=== PATIENT | male | born 1960 | race Caucasian/White ===

== ENCOUNTER 2018-12-21 06:14 | Observation (INO) ==
[2018-12-17 12:14] LABS: URINE SOURCE CLEAN CATCH
[2018-12-17 12:43] LABS: BILIRUBIN URINE NEGATIVE (NEGATIVE); BLOOD URINE NEGATIVE (NEGATIVE); COLOR YELLOW; GLUCOSE URINE NEGATIVE (NEGATIVE); KETONE URINE NEGATIVE (NEGATIVE); LEUKOCYTES URINE NEGATIVE (NEGATIVE); NITRITE URINE NEGATIVE (NEGATIVE); PROTEIN URINE NEGATIVE (NEGATIVE); SP GRAVITY URINE 1.014; TURBIDITY URINE CLEAR (CLEAR); UROBILINOGEN URINE 3 mg/dL (NORMAL)
[2018-12-17 12:44] LABS: INR 1.28
[2018-12-17 12:48] LABS: UR EPITHELIAL CELLS <10 /HPF (<10); URINE BACTERIA NEGATIVE /HPF; URINE RBC <10 /HPF (<10); URINE WBC <10 /HPF (<10)
[2018-12-17 12:50] LABS: BASO# 0.04 X1000 (0.0-0.2); BASO% 1.1 % (0.0-0.8); EOS# 0.14 X1000 (0.0-0.7); EOS% 3.8 % (0.0-10.0); HEMATOCRIT 42.5 % (42.0-52.0); HEMOGLOBIN 14.9 g/dL (14.0-18.0); LYMPH# 0.95 X1000 (1.2-3.4); LYMPH% 25.5 % (20.5-51.1); MCH 34.4 PG (27-31); MCHC 35.1 g/dL (33-37); MCV 98.2 FL (81-99); MONO# 0.39 X1000 (0.11-0.59); MONO% 10.5 % (1.7-9.3); MPV 11.1 FL (7.4-10.4); NEUT# 2.21 X1000 (1.4-6.5); NEUT% 59.1 % (42.2-75.2); PLT 82 X1000 (130-400); RBC 4.33 XMIL (4.7-6.1); WBC 3.73 X1000 (4.8-10.8)
[2018-12-17 12:59] LABS: AGAP 12; BUN 6 mg/dL (8-22); CALCIUM 8.6 mg/dL (8.8-10.2); CHLORIDE 108 mmol/L (98-107); COSMO 282; CREATININE 0.6 mg/dL (0.7-1.2); ESTIMATED GFR > 60; GLUCOSE 153 mg/dL (70-104); POTASSIUM 3.9 mmol/L (3.5-5.1); SODIUM 141 mmol/L (136-145); TCO2 21 mmol/L (25-35)
[2018-12-21] MEDS ORDERED: PEPCID ONE (07:14)
[2018-12-21] MEDS ORDERED: LYRICA ONE (07:14)
[2018-12-21] MEDS ORDERED: CELEBREX ONE (07:14)
[2018-12-21] MEDS ORDERED: COLACE ONE (07:14)
[2018-12-21] MEDS ORDERED: REGLAN ONE (07:14)
[2018-12-21] MEDS ORDERED: LR 1,000 ML ONE (07:15)
[2018-12-21] MEDS ORDERED: KEFZOL 2 GM/D5W 2 GM/50 ML IVPB ONE (07:15)
[2018-12-21] MEDS ORDERED: DIPRIVAN 1% ONE (08:44)
[2018-12-21] MEDS ORDERED: ZOFRAN ONE (08:46)
[2018-12-21] MEDS ORDERED: XYLOCAINE-MPF 2% ONE (08:46)
[2018-12-21] MEDS ORDERED: DECADRON ONE (08:46)
[2018-12-21] MEDS ORDERED: OFIRMEV 1000 MG/ISOTONIC SOLN 1,000 MG/100 ML BOTTLE ONE (08:46)
[2018-12-21] MEDS ORDERED: SUFENTA ONE (08:47)
[2018-12-21] MEDS ORDERED: VERSED ONE (08:49)
[2018-12-21] MEDS ORDERED: DURAMORPH ONE (08:49)
[2018-12-21] MEDS ORDERED: TORADOL ONE (08:49)
[2018-12-21] MEDS ORDERED: SENSORCAINE-MPF 0.5%/EPI 1:200,000 ONE (08:50)
[2018-12-21] MEDS ORDERED: SODIUM CHLORIDE 0.9% ONE (08:50)
[2018-12-21] MEDS ORDERED: NEOSPORIN G.U. IRRIGANT ONE (08:50)
[2018-12-21] MEDS ORDERED: EXPAREL 1.3% ONE (08:50)
[2018-12-21] MEDS ORDERED: VANCOMYCIN ONE (09:10)
[2018-12-21] MEDS: CYKLOKAPRON 1,000 MG/NS 2,000 MG/200 ML IVPB ONE ×2 (09:25→11:30)
[2018-12-21] MEDS ORDERED: ROBINUL ONE (09:55)
[2018-12-21] MEDS ORDERED: NEO-SYNEPHRINE ONE (09:55)
[2018-12-21] MEDS ORDERED: NS 1,000 ML ONE (11:46)
[2018-12-21 11:49] LABS: URINE SOURCE CATH
[2018-12-21 11:56] LABS: BILIRUBIN URINE NEGATIVE (NEGATIVE); BLOOD URINE TRACE (NEGATIVE); COLOR YELLOW; GLUCOSE URINE NEGATIVE (NEGATIVE); KETONE URINE 10 mg/dL (NEGATIVE); LEUKOCYTES URINE NEGATIVE (NEGATIVE); NITRITE URINE NEGATIVE (NEGATIVE); PH URINE 6.5; PROTEIN URINE TRACE mg/dL (NEGATIVE); SP GRAVITY URINE 1.017; TURBIDITY URINE CLEAR (CLEAR); UR EPITHELIAL CELLS >10 /HPF (<10); URINE BACTERIA NEGATIVE /HPF; URINE RBC <10 /HPF (<10); URINE WBC 20-40 /HPF (<10); UROBILINOGEN URINE 2 mg/dL (NORMAL)
[2018-12-21] MEDS ORDERED: MORPHINE IV PRN (12:25)
[2018-12-21] MEDS ORDERED: TYLENOL PO SCH (12:25)
[2018-12-21] MEDS ORDERED: OXY IR PO PRN (12:25)
[2018-12-21] MEDS ORDERED: ZOFRAN IV PRN (12:25)
[2018-12-21] MEDS ORDERED: MILK OF MAGNESIA PO PRN (12:25)
[2018-12-21] MEDS: KEFZOL 2 GM/D5W 2 GM/50 ML IVPB IV SCH ×2 (14:59→23:30)
[2018-12-21] MEDS: ULTRAM PO SCH ×2 (14:59→21:00)
[2018-12-21] MEDS: TYLENOL PO SCH ×2 (14:59→22:13)
[2018-12-21] MEDS ORDERED: PNEUMOVAX 23 IM ONE (16:45)
[2018-12-21] MEDS: COLACE PO SCH (22:13)
[2018-12-21] MEDS: CELEBREX PO SCH (22:13)
[2018-12-21] MEDS: LYRICA PO SCH (22:14)
[2018-12-21] MEDS: OXY IR PO PRN (22:14)
[2018-12-21] MEDS: NS 1,000 ML IV SCH (22:14)
[2018-12-21] MEDS: PERIDEX MT SCH (22:15)
[2018-12-22] MEDS: NS 1,000 ML IV SCH (01:55)
[2018-12-22] MEDS: ULTRAM PO SCH ×2 (03:00→10:23)
[2018-12-22] MEDS: OXY IR PO PRN (04:36)
[2018-12-22] MEDS: TYLENOL PO SCH ×2 (04:52→10:23)
[2018-12-22 05:58] LABS: HEMATOCRIT 34.9 % (42.0-52.0); HEMOGLOBIN 12.1 g/dL (14.0-18.0)
[2018-12-22 06:20] LABS: AGAP 8; BUN 11 mg/dL (8-22); CHLORIDE 108 mmol/L (98-107); COSMO 277; CREATININE 0.5 mg/dL (0.7-1.2); ESTIMATED GFR > 60; GLUCOSE 165 mg/dL (70-104); POTASSIUM 4.2 mmol/L (3.5-5.1); SODIUM 137 mmol/L (136-145); TCO2 21 mmol/L (25-35)
[2018-12-22] MEDS ORDERED: NORVASC PO SCH (09:00)
[2018-12-22] MEDS ORDERED: PEPCID PO SCH (09:00)
[2018-12-22] MEDS ORDERED: ASPIRIN PO SCH (09:00)
[2018-12-22] MEDS ORDERED: LIXISENATIDE SQ SCH (09:00)
[2018-12-22] MEDS ORDERED: INSULIN GLARGINE SQ SCH (09:00)
--- NOTE | 2018-12-22 09:19 | OPERATIVE NOTE ---
PROCEDURE DATE: 12/21/2018 PREOPERATIVE DIAGNOSIS: Right knee degenerative joint disease. POSTOPERATIVE DIAGNOSIS: Right knee degenerative joint disease. PROCEDURE PERFORMED: Right total knee arthroplasty using [facility] size 7 femoral component, size 7 tibial base plate, a 14 mm articular insert, and a 35 mm patellar component. ANESTHESIA: General. SURGEON: Abdelrahman Jay MD. CATHETER FINISHER AND INSPECTOR: Mando. COMPLICATIONS: None. BLOOD LOSS: Minimal. TOURNIQUET TIME: Approximately an hour and a half. DRAINS: Hemovac x1. DESCRIPTION OF PROCEDURE: The patient was brought to the operative suite and placed in supine position. After successful administration of general anesthesia, a well-padded tourniquet was placed on right proximal thigh and right lower extremity was prepped and draped in usual sterile fashion. Leg was exsanguinated and tourniquet was insufflated to 350 torr. A longitudinal incision was made beginning at the superior pole of the patella and extended distally to the tibial tuberosity. The medial arthrotomy was then made with elevating the medial capsule off the medial tibial plateau. The ACL, PCL, medial meniscus, and lateral meniscus were excised. A drill was entered in the distal femur. The intramedullary guide was placed. Distal cutting block was pinned in place, and then the distal cut was made with oscillating saw. Attention was then directed to the tibia. A drill was entered into the center of the tibia. Intramedullary guide was placed. The line was checked with drop rafi referencing off the anterior cortex, tibia, and the second ray of the foot, and taking 4 mm off the low side of the tibia which in this case was medially. The tibial cutting block was pinned into place and the tibial cut was made with oscillating saw. Marginal osteophytes of both tibia and femur were removed a rongeur. An extension gap was checked and was measured to be 14 mm. Using a flexion gap of 14 mm as well, the tibial cutting block was pinned into place. It was measured to a size 7. A size 7 cutting block was pinned in place and the anterior cuts, chamfer cuts, and posterior condylar cuts were made with the oscillating saw. Marginal osteophytes were removed with rongeur. The box cutting block was pinned into place. A box cut was made with a box osteotome and oscillating saw. Posterior condyle osteophytes removed with a curved osteotome and rongeur. Attention was then directed to the tibia. It was measured to a size 7. A size 7 guide was used for the fin punch. The tibial trial, femoral trial, and 14 mm articular insert were placed and taken through range of motion and found to have excellent alignment, balancing, and range of motion. Attention was then directed to patella. 9 mm of the articular surface of patella removed with oscillating saw. Patella sized to a size 35. A size 35 guide was used to drill peg holes, lateral facet was chamfered 30 to 45 degrees. Patella trial was placed taken through range of motion and found yo have excellent patella tracking. All trials were then removed. The knee was copiously irrigated and dried, being certain all bone debris was removed. The trial articular insert was removed. The knee was copiously infiltrated with Exparel including the posterior capsule, anterior capsule, anterior musculature, and subcutaneous tissue. Once the tibial component, femoral component, and patella component were cemented into place, excess cement was removed with a [place]. Once the cement hardened, excess cement was again removed with osteotome. Knee was again copiously irrigated and dried, being certain all bone and cement debris were removed. The trial articular insert was removed. The knee was copiously infiltrated with Exparel, including posterior capsule, anterior capsule, anterior musculature, and subcutaneous tissue. A drain was placed exiting superior laterally, and buried in the lateral gutter. The definitive articular insert was locked into place. The tourniquet was deflated, and hemostasis was obtained with electrocautery. The knee was again copiously irrigated with normal saline containing irrigant and Vashe irrigation. The medial arthrotomy was closed with 0 V-Loc. The skin edge approximated with 2-0 Vicryl. Skin was closed with Prineo and a sterile dressing was applied. The patient tolerated the procedure well without complication. At the end the procedure, all counts correct x2. The patient was transferred to the recovery room in stable condition. cc: [facility] Abdelrahman Jay MD
[2018-12-22] MEDS: PERIDEX MT SCH (10:22)
[2018-12-22] MEDS: CELEBREX PO SCH (10:23)
[2018-12-22] MEDS: LYRICA PO SCH (10:23)
[2018-12-22] MEDS: COLACE PO SCH (10:23)
--- NOTE | 2018-12-22 10:34 | DISCHARGE SUMMARY ---
ADMISSION DATE: 12/21/2018 DISCHARGE DATE: 12/22/2018 DISCHARGE DIAGNOSIS: Right knee degenerative joint disease, status post right total knee arthroplasty. DISCHARGE MEDICATIONS: See discharge medication list. DISPOSITION: The patient is discharged home with outpatient physical therapy. DISCHARGE INSTRUCTIONS: Instructions for total knee arthroplasty protocol and instructed to return to see Dr. Jay next . HOSPITAL COURSE: On the day of admission, patient underwent a right total knee arthroplasty. His postoperative course was unremarkable. At discharge, he is afebrile tolerating regular diet, and ambulating well with physical therapy. Yesterday, he walked 250 feet. At discharge, hemoglobin is 12.1, his hematocrit is 34.9. He has had 100 mL of drainage from his Hemovac drain in the last 8 hours which we have discontinued. His left knee dressing is clean, dry, and intact. His left leg is neurovascularly intact. He is discharged home in stable condition with instructions to follow up as described above. Dictated by IMER Rolle for Abdelrahman Jay MD cc: IMER Rolle MD
[2018-12-22 12:33] VITALS: BP 125/67
== END 2018-12-22 16:25 | disposition home or self-care (01) ==
LOC: OR 06:14 → 4N 06:14
PROVIDERS: ADMIT Orthopaedic Surgery; ATTEND Orthopaedic Surgery
CPT/HCPCS: 80048; 81001; 82948; 85014; 85018; 85025; 85610; 86850; 86900; 86901; 87088; 88305; 88311; 90732; 94761; 94799; 97110; 97116; 97162; 97530; A9270; C9290; J0131; J0690; J1100; J1885; J2250; J2270; J2274; J2275; J2370; J2405; J3370; J7030; J7120; Q9974; XXXXX